=== PATIENT | male | born 1970 | race Two or more races ===

== ENCOUNTER 2021-11-16 13:21 | Inpatient (IN) | payer OTHER ==
[~2021-11-16] VITALS: Ht 190.5 cm; Wt 112.1 kg
[2021-11-16] MEDS ORDERED: HYDROcodone-ACET 10/325MG TAB PO ONE (15:30)
[2021-11-16] MEDS ORDERED: ONDANSETRON HCL 4 MG/2 ML VIAL IV PRN (19:15)
[2021-11-16] MEDS ORDERED: OXYCODONE W/ ACETAMINOPHEN 5/325MG TABLET PO PRN (19:15)
[2021-11-16 20:04] LABS: Basophils # (auto) 0 10 ^3/uL (0-0.2); Basophils % (auto) 0.5 % (0.0-2.0); Eosinophils # (auto) 0 10 ^3/uL (0-0.8); Eosinophils % (auto) 0.8 % (0.0-7.0); Hematocrit 38.8 % (41.0-53.0); Hemoglobin 12.9 g/dL (13.5-17.5); Lymphocytes # (auto) 1.8 10 ^3/uL (0.4-5.4); Lymphocytes % (auto) 30.3 % (10.0-50.0); Mean Corpuscular Hemoglobin 29.2 pg (28.0-32.0); Mean Corpuscular Hgb Conc. 33.2 g/dL (32.0-36.0); Monocytes # (auto) 0.4 10 ^3/uL (0-1.3); Monocytes % (auto) 6.8 % (0.0-12.0); Neutrophils # (auto) 3.6 10 ^3/uL (1.6-8.6); Neutrophils % (auto) 61.6 % (37.0-80.0); Red Blood Cells 4.41 10^6/uL (4.5-5.90); Red Cell Distribution Width 14.5 % (11.8-14.3); White Blood Cell 5.8 10^3/uL (4.4-10.8)
[2021-11-16 20:24] LABS: Albumin 3.7 g/dL (3.4-5.0); Calcium 8.9 mg/dL (8.5-10.1); Potassium 3.9 mmol/L (3.5-5.1)
[2021-11-16 20:28] LABS: BUN/Creatinine Ratio 11.2; Bilirubin, Total 0.8 mg/dL (0.2-1.0); Total Protein 6.9 g/dL (6.4-8.2)
[2021-11-16 20:31] LABS: INR 1.01 (0.9-1.15); Partial Thromboplastin Time 29.4 sec (23.6-33.0)
[2021-11-16] MEDS ORDERED: NITROGLYCERIN 0.4 MG SL TAB SL PRN (21:15)
[2021-11-16] MEDS ORDERED: MORPHINE SULFATE INJECTION 2 MG/ML SYRG IV PRN (21:15)
[2021-11-16 23:15] VITALS: BP 138/72
[2021-11-16 23:30] VITALS: BP 138/72
[2021-11-17] MEDS ORDERED: LISI-275 PO (01:47)
[2021-11-17] MEDS ORDERED: HYDR12.56 PO (01:47)
[2021-11-17 05:08] VITALS: BP 119/66
[2021-11-17 09:00] VITALS: BP 161/74
[2021-11-17] MEDS ORDERED: ENOXAPARIN SOD 40 MG/0.4 ML SYRINGE SC ONE (10:00)
[2021-11-17] MEDS ORDERED: PANTOPRAZOLE 40 MG TAB PO ONE (10:00)
[2021-11-17] MEDS: LISINOPRIL 5 MG TAB PO SCH (12:08)
[2021-11-17] MEDS: HCTZ 25 MG TAB PO SCH (12:09)
[2021-11-17 13:00] VITALS: BP 165/71
[2021-11-17 17:00] VITALS: BP 121/58
[2021-11-17 22:00] VITALS: BP 152/79
[2021-11-18 05:00] VITALS: BP 135/77
[2021-11-18 09:00] VITALS: BP 148/88
[2021-11-18] MEDS: HCTZ 25 MG TAB PO SCH (09:46)
[2021-11-18] MEDS: LISINOPRIL 5 MG TAB PO SCH (09:46)
[2021-11-18] MEDS ORDERED: HCTZ 25 MG TAB PO SCH (10:00)
[2021-11-18] MEDS ORDERED: LISINOPRIL 5 MG TAB PO SCH (10:00)
[2021-11-18 12:30] VITALS: BP 127/78
[2021-11-18 13:42] VITALS: BP 148/88
[2021-11-18] MEDS ORDERED: LORATADINE 10 MG TAB PO SCH (15:30)
[2021-11-18] MEDS ORDERED: FLUTICASONE PROP NASAL SPR 0.05 % (50MCG) 16GM EACHNOSTRI SCH (15:30)
[2021-11-19] MEDS ORDERED: LORATADINE 10 MG TAB PO SCH (10:00)
[2021-11-19] MEDS ORDERED: FLUTICASONE PROP NASAL SPR 0.05 % (50MCG) 16GM EACHNOSTRI SCH (10:00)
== END 2021-11-18 16:21 | DRG 563 ==
LOC: EDBD 13:21 → EEVIPCON 13:21 → ER 13:21 → TELE 21:14 → TELE-WESTW 22:49 → WEST WING 11-17 10:21 → TELE-WESTW 11-17 12:00
PROVIDERS: ADMIT Internal Medicine; ATTEND Internal Medicine
PROC: 3E0U33Z Introduction of Anti-inflammatory into Joints, Percutaneous Approach (ICD-10-PCS; principal; 2021-11-17)
DX: M23.92 Unspecified internal derangement of left knee (principal); M17.12 Unilateral primary osteoarthritis, left knee; S83.207A Unspecified tear of unspecified meniscus, current injury, left knee, initial encounter; S46.219A Strain of muscle, fascia and tendon of other parts of biceps, unspecified arm, initial encounter; Z20.822 Contact with and (suspected) exposure to COVID-19; N18.9 Chronic kidney disease, unspecified; I12.9 Hypertensive chronic kidney disease with stage 1 through stage 4 chronic kidney disease, or unspecified chronic kidney disease; R29.6 Repeated falls; W18.39XA Other fall on same level, initial encounter; R00.1 Bradycardia, unspecified; Y93.89 Activity, other specified; Y92.89 Other specified places as the place of occurrence of the external cause; Y99.8 Other external cause status
CPT/HCPCS: 36415; 73721; 80053; 85025; 85610; 85730; 96372; 97163; G0378